=== PATIENT | female | born 1970 | race Two or more races ===

== ENCOUNTER 2021-04-16 09:44 | Outpatient (CLI) | payer OTHER | END 2021-04-16 09:45 | disposition home or self-care (01) | LOC: LAB 09:44 | DX: I10 Essential (primary) hypertension (principal); L40.8 Other psoriasis; Z00.00 Encounter for general adult medical examination without abnormal findings ==

== ENCOUNTER 2021-04-18 09:51 | Outpatient (CLI) | payer OTHER | END 2021-04-18 09:59 | disposition home or self-care (01) | LOC: SONOGRAMA 09:51 | DX: E03.8 Other specified hypothyroidism (principal) ==

== ENCOUNTER 2021-07-27 10:16 | Outpatient (CLI) | payer OTHER | END 2021-07-27 10:21 | disposition home or self-care (01) | LOC: LAB 10:16 | PROVIDERS: ATTEND Internal Medicine Endocrinology, Diabetes & Metabolism | DX: E03.8 Other specified hypothyroidism (principal); E11.65 Type 2 diabetes mellitus with hyperglycemia ==

== ENCOUNTER → 2022-02-04 10:37 | Outpatient (CLI) | payer OTHER | END | disposition home or self-care (01) | LOC: LAB 10:37 | PROVIDERS: ATTEND Obstetrics & Gynecology Obstetrics | DX: A64 Unspecified sexually transmitted disease (principal); E55.9 Vitamin D deficiency, unspecified; D64.3 Other sideroblastic anemias; N39.0 Urinary tract infection, site not specified; E03.9 Hypothyroidism, unspecified; I10 Essential (primary) hypertension; R10.2 Pelvic and perineal pain ==

== ENCOUNTER → 2022-02-12 | Outpatient (CLI) | payer OTHER | END | disposition home or self-care (01) | LOC: MAMO-SONO 12:23 | PROVIDERS: ATTEND Obstetrics & Gynecology Obstetrics | DX: N60.01 Solitary cyst of right breast (principal); N60.02 Solitary cyst of left breast; R10.2 Pelvic and perineal pain; Z12.31 Encounter for screening mammogram for malignant neoplasm of breast ==

== ENCOUNTER 2022-03-22 09:48 | Outpatient (CLI) | payer OTHER | END 2022-03-22 09:49 | disposition home or self-care (01) | LOC: LAB 09:48 | PROVIDERS: ATTEND Internal Medicine Endocrinology, Diabetes & Metabolism | DX: E11.65 Type 2 diabetes mellitus with hyperglycemia (principal); E78.00 Pure hypercholesterolemia, unspecified ==

== ENCOUNTER → 2022-08-08 08:04 | Outpatient (CLI) | payer OTHER | END | disposition home or self-care (01) | LOC: LAB 08:04 | PROVIDERS: ATTEND Internal Medicine Endocrinology, Diabetes & Metabolism | DX: E11.65 Type 2 diabetes mellitus with hyperglycemia (principal); E78.00 Pure hypercholesterolemia, unspecified ==

== ENCOUNTER → 2022-09-06 | Emergency (ER) | payer OTHER ==
[~2022-09-06] VITALS: Ht 149.9 cm; Wt 65.3 kg
[~2022-09-06] MED LIST: ADVIL LIQUI-GE200 MG PO; CRESTOR10 MG PO; METAXALONE800 MG PO; METFORMIN HCL850 M1 PO
== END | disposition home or self-care (01) ==
LOC: ER 10:23
DX: S13.4XXA Sprain of ligaments of cervical spine, initial encounter (principal); V43.52XA Car driver injured in collision with other type car in traffic accident, initial encounter; Y93.89 Activity, other specified; Y92.413 State road as the place of occurrence of the external cause; E11.9 Type 2 diabetes mellitus without complications; Z79.84 Long term (current) use of oral hypoglycemic drugs; I10 Essential (primary) hypertension

== ENCOUNTER 2022-12-27 09:41 | Outpatient (CLI) | payer OTHER | END 2022-12-27 09:50 | disposition home or self-care (01) | LOC: LAB 09:41 | PROVIDERS: ATTEND Internal Medicine Endocrinology, Diabetes & Metabolism | DX: E11.65 Type 2 diabetes mellitus with hyperglycemia (principal); E78.2 Mixed hyperlipidemia ==

== ENCOUNTER → 2023-05-02 09:42 | Outpatient (CLI) | payer OTHER ==
[2023-05-02 11:22] LABS: PH,URINE 6.5 (5.0-8.0); URINE APPEARANCE Clear; URINE BILIRRUBIN Negative (NEGATIVE); URINE BLOOD Negative; URINE COLOR Yellow; URINE GLUCOSE Negative (NEGATIVE); URINE LEUKOCYTE Trace; URINE NITRATE Negative; URINE PROTEIN Negative (NEGATIVE); URINE UROBILINOGEN 0.2 E.U./dl
[2023-05-02 11:27] LABS: URINE BACTERIA 2755.1 uL (0.0-1933); URINE EPITHELIAL CELLS 42.3 uL (0.0-38.8); URINE RBC 18.1 uL (0.0-20.8); URINE WBC 22.7 uL (0.0-23.2)
[2023-05-02 12:00] LABS: ALBUMIN 3.6 gm/dL (3.4-5.0); BILIRUBIN TOTAL 0.37 mg/dL (0.3-1.2); CALCIUM 9.6 mg/dL (8.5-10.1); CHOL HDL RATIO 2.5 (0-5.0); CREATININE SERUM 0.64 mg/dL (0.55-1.02); GFR 97.44; GLOBULINA 3.3 G/DL (2.4-3.5); POTASSIUM 4.82 mEq/L (3.5-5.1); TOTAL PROTEIN 6.9 gm/dL (6.4-8.2)
== END | disposition home or self-care (01) ==
LOC: LAB 09:42
PROVIDERS: ATTEND Internal Medicine Endocrinology, Diabetes & Metabolism
DX: E03.8 Other specified hypothyroidism (principal); E78.00 Pure hypercholesterolemia, unspecified; E11.65 Type 2 diabetes mellitus with hyperglycemia

== ENCOUNTER 2023-08-07 08:53 | Outpatient (CLI) | payer OTHER ==
[2023-08-07 09:42] LABS: HEMATOCRIT 41.9 % (36.0-45.00); MEAN CELL VOLUME 82.5 fL (80.00-100.00); MEAN CORPUSCULAR HEMOGLOBIN 27.6 pg (27.00-32.0); MEAN CORPUSCULAR HGB CONC 33.4 g/dl (32.0-36.0); PLATELET COUNT 287 K/uL (150-450); RED BLOOD COUNT 5.08 M/uL (4.00-6.00); RED CELL DISTRIBUTION WIDTH 14.6 % (11.5-14.5)
[2023-08-07 10:10] LABS: ALBUMIN 3.4 gm/dL (3.4-5.0); BILIRUBIN TOTAL 0.37 mg/dL (0.3-1.2); CALCIUM 9.5 mg/dL (8.5-10.1); CHOL HDL RATIO 2.7 (0-5.0); CREATININE SERUM 0.68 mg/dL (0.55-1.02); GFR 90.51; GLOBULINA 3.5 G/DL (2.4-3.5); POTASSIUM 4.47 mEq/L (3.5-5.1); TOTAL PROTEIN 6.9 gm/dL (6.4-8.2)
== END 2023-08-07 08:56 | disposition home or self-care (01) ==
LOC: LAB 08:53
PROVIDERS: ATTEND Internal Medicine Endocrinology, Diabetes & Metabolism
DX: E03.8 Other specified hypothyroidism (principal); E78.00 Pure hypercholesterolemia, unspecified

== ENCOUNTER 2023-08-29 10:05 | Outpatient (CLI) | payer OTHER ==
[2023-08-29 11:50] LABS: HEMOGLOBIN 13.9 g/dL (12.0-15.00); MEAN CELL VOLUME 83.5 fL (80.00-100.00); MEAN CORPUSCULAR HEMOGLOBIN 28.2 pg (27.00-32.0); MEAN CORPUSCULAR HGB CONC 33.8 g/dl (32.0-36.0); PLATELET COUNT 319 K/uL (150-450); RED BLOOD COUNT 4.92 M/uL (4.00-6.00)
[2023-08-29 12:06] LABS: URINE APPEARANCE Clear; URINE BILIRRUBIN Negative (NEGATIVE); URINE BLOOD Negative; URINE COLOR Yellow; URINE GLUCOSE Negative (NEGATIVE); URINE LEUKOCYTE Negative; URINE NITRATE Negative; URINE PROTEIN Negative (NEGATIVE); URINE UROBILINOGEN 0.2 E.U./dl
[2023-08-29 12:11] LABS: URINE BACTERIA 435.8 uL (0.0-1933); URINE RBC 18.2 uL (0.0-20.8); URINE WBC 1.8 uL (0.0-23.2)
[2023-08-29 12:36] LABS: INR < 0.93; PARTIAL THROMBOPLASTIN TIME 31.5 SECONDS (22.0-34.0); PROTHROMBIN TIME 9.8 SECONDS (9.0-11.5)
[2023-08-29 12:37] LABS: ALBUMIN 3.7 gm/dL (3.4-5.0); BILIRUBIN TOTAL 0.35 mg/dL (0.3-1.2); CALCIUM 9.7 mg/dL (8.5-10.1); CREATININE SERUM 0.6 mg/dL (0.55-1.02); GFR 104.57; GLOBULINA 3.2 G/DL (2.4-3.5); POTASSIUM 4.78 mEq/L (3.5-5.1); TOTAL PROTEIN 6.9 gm/dL (6.4-8.2)
== END 2023-08-29 10:06 | disposition home or self-care (01) ==
LOC: RAD 10:05
DX: L91.0 Hypertrophic scar (principal)

== ENCOUNTER 2023-09-04 14:00 | Outpatient (CLI) | payer OTHER ==
[2023-09-04 14:47] LABS: HEMATOCRIT 41.3 % (36.0-45.00); MEAN CELL VOLUME 82.9 fL (80.00-100.00); MEAN CORPUSCULAR HEMOGLOBIN 28.1 pg (27.00-32.0); MEAN CORPUSCULAR HGB CONC 33.9 g/dl (32.0-36.0); PLATELET COUNT 283 K/uL (150-450); RED BLOOD COUNT 4.98 M/uL (4.00-6.00); RED CELL DISTRIBUTION WIDTH 15.2 % (11.5-14.5)
[2023-09-04 15:13] LABS: MYCOPLASMA PNEUMONIAE IGM NON REACTIVE (NO REACTIVE)
== END 2023-09-04 14:01 | disposition home or self-care (01) ==
LOC: LAB 14:00
DX: A49.3 Mycoplasma infection, unspecified site (principal); Z03.818 Encounter for observation for suspected exposure to other biological agents ruled out; Z20.828 Contact with and (suspected) exposure to other viral communicable diseases; D51.0 Vitamin B12 deficiency anemia due to intrinsic factor deficiency

== ENCOUNTER 2024-01-28 13:35 | Emergency (ER) | payer OTHER ==
[~2024-01-28] VITALS: Ht 149.9 cm; Wt 67.6 kg
[2024-01-28] MEDS ORDERED: DOXYCYCLINE HY100 M2 PO (16:38)
[2024-01-28] MEDS ORDERED: IBU600 MG PO (16:38)
[2024-01-28] MEDS ORDERED: CEFTRIAXONE SODIUM 1,000 MG VIAL ONE (16:42)
[2024-01-28] MEDS ORDERED: CEFTRIAXONE SODIUM 1,000 MG VIAL IM ONE (16:45)
== END 2024-01-28 16:54 | disposition home or self-care (01) ==
LOC: ER 13:35
DX: L02.91 Cutaneous abscess, unspecified (principal)

== ENCOUNTER 2024-04-02 10:30 | Outpatient (CLI) | payer OTHER ==
[~2024-04-02 10:30] MED LIST changes: +DOXYCYCLINE HY100 M2 PO; +IBU600 MG PO
[2024-04-02 11:47] LABS: PH,URINE 5.5 (5.0-8.0); URINE APPEARANCE Clear; URINE BILIRRUBIN Negative (NEGATIVE); URINE BLOOD Negative; URINE COLOR Yellow; URINE GLUCOSE Negative (NEGATIVE); URINE KETONE Negative (NEGATIVE); URINE LEUKOCYTE Negative; URINE NITRATE Negative; URINE PROTEIN Negative (NEGATIVE); URINE UROBILINOGEN 0.2 E.U./dl
[2024-04-02 11:50] LABS: URINE BACTERIA 1192.8 uL (0.0-1933); URINE EPITHELIAL CELLS 35.5 uL (0.0-38.8); URINE WBC 7.2 uL (0.0-23.2)
[2024-04-02 11:59] LABS: HEMATOCRIT 44.7 % (36.0-45.00); HEMOGLOBIN 14.9 g/dL (12.0-15.00); MEAN CELL VOLUME 83.7 fL (80.00-100.00); MEAN CORPUSCULAR HEMOGLOBIN 27.8 pg (27.00-32.0); MEAN CORPUSCULAR HGB CONC 33.3 g/dl (32.0-36.0); PLATELET COUNT 309 K/uL (150-450); RED BLOOD COUNT 5.34 M/uL (4.00-6.00); RED CELL DISTRIBUTION WIDTH 15.1 % (11.5-14.5)
[2024-04-02 12:21] LABS: ALBUMIN 3.9 gm/dL (3.4-5.0); BILIRUBIN TOTAL 0.45 mg/dL (0.3-1.2); CALCIUM 9.7 mg/dL (8.5-10.1); CHOL HDL RATIO 2.2 (0-5.0); CREATININE SERUM 0.67 mg/dL (0.55-1.02); GFR 92.07; GLOBULINA 3.6 G/DL (2.4-3.5); POTASSIUM 4.49 mEq/L (3.5-5.1); TOTAL PROTEIN 7.5 gm/dL (6.4-8.2)
== END 2024-04-02 23:00 | disposition home or self-care (01) ==
LOC: LAB 10:30
PROVIDERS: ATTEND Internal Medicine Endocrinology, Diabetes & Metabolism
DX: E11.65 Type 2 diabetes mellitus with hyperglycemia (principal); E78.5 Hyperlipidemia, unspecified

== ENCOUNTER 2024-06-18 09:47 | Outpatient (CLI) | payer OTHER ==
[2024-06-18 11:13] LABS: HEMATOCRIT 43.1 % (36.0-45.00); HEMOGLOBIN 14.8 g/dL (12.0-15.00); MEAN CELL VOLUME 84.5 fL (80.00-100.00); MEAN CORPUSCULAR HGB CONC 34.3 g/dl (32.0-36.0); PLATELET COUNT 305 K/uL (150-450); RED CELL DISTRIBUTION WIDTH 14.3 % (11.5-14.5)
== END 2024-06-18 09:54 | disposition home or self-care (01) ==
LOC: LAB 09:47
DX: K21.9 Gastro-esophageal reflux disease without esophagitis (principal); R09.82 Postnasal drip; J42 Unspecified chronic bronchitis

== ENCOUNTER 2024-07-07 12:48 | Outpatient (CLI) | payer OTHER | END 2024-07-07 12:54 | disposition home or self-care (01) | LOC: MAMO-SONO 12:48 | PROVIDERS: ATTEND Obstetrics & Gynecology Gynecology | DX: N64.59 Other signs and symptoms in breast (principal); N63.0 Unspecified lump in unspecified breast; R10.2 Pelvic and perineal pain ==

== ENCOUNTER → 2024-07-25 10:25 | Outpatient (CLI) | payer OTHER ==
[2024-07-25 11:08] LABS: URINE APPEARANCE Clear; URINE BILIRRUBIN Negative (NEGATIVE); URINE BLOOD Negative; URINE COLOR Yellow; URINE GLUCOSE Negative (NEGATIVE); URINE KETONE Negative (NEGATIVE); URINE LEUKOCYTE Negative; URINE NITRATE Negative; URINE PROTEIN Negative (NEGATIVE); URINE UROBILINOGEN 0.2 E.U./dl
[2024-07-25 11:12] LABS: URINE BACTERIA 1785.5 uL (0.0-1933); URINE EPITHELIAL CELLS 27.8 uL (0.0-38.8); URINE RBC 9.7 uL (0.0-20.8); URINE WBC 10.4 uL (0.0-23.2)
[2024-07-25 11:15] LABS: HEMATOCRIT 40.6 % (36.0-45.00); HEMOGLOBIN 14.2 g/dL (12.0-15.00); MEAN CORPUSCULAR HEMOGLOBIN 29.3 pg (27.00-32.0); MEAN CORPUSCULAR HGB CONC 34.9 g/dl (32.0-36.0); PLATELET COUNT 304 K/uL (150-450); RED BLOOD COUNT 4.83 M/uL (4.00-6.00); RED CELL DISTRIBUTION WIDTH 13.8 % (11.5-14.5)
[2024-07-25 11:30] LABS: URINE CAST 0.14 uL (0.0-1.40)
[2024-07-25 12:18] LABS: ALBUMIN 3.6 gm/dL (3.4-5.0); BILIRUBIN TOTAL 0.44 mg/dL (0.3-1.2); CALCIUM 9.2 mg/dL (8.5-10.1); CHOL HDL RATIO 2.4 (0-5.0); CREATININE SERUM 0.64 mg/dL (0.55-1.02); GFR 96.7; GLOBULINA 3.2 G/DL (2.4-3.5); POTASSIUM 4.3 mEq/L (3.5-5.1); TOTAL PROTEIN 6.8 gm/dL (6.4-8.2)
== END | disposition home or self-care (01) ==
LOC: LAB 10:25
PROVIDERS: ATTEND Internal Medicine Endocrinology, Diabetes & Metabolism
DX: E78.00 Pure hypercholesterolemia, unspecified (principal)

== ENCOUNTER 2024-07-27 09:02 | Outpatient (CLI) | payer OTHER | END 2024-07-27 09:03 | disposition home or self-care (01) | LOC: NUCLEAR 09:02 | PROVIDERS: ATTEND Obstetrics & Gynecology Gynecology | DX: M81.0 Age-related osteoporosis without current pathological fracture (principal) ==

== ENCOUNTER → 2024-08-13 09:31 | Outpatient (CLI) | payer OTHER ==
[2024-08-13 10:23] LABS: PH,URINE 5.5 (5.0-8.0); URINE APPEARANCE Clear; URINE BILIRRUBIN Negative (NEGATIVE); URINE BLOOD Negative; URINE COLOR Yellow; URINE GLUCOSE Negative (NEGATIVE); URINE KETONE Negative (NEGATIVE); URINE LEUKOCYTE Negative; URINE NITRATE Negative; URINE PROTEIN Negative (NEGATIVE); URINE UROBILINOGEN 0.2 E.U./dl
[2024-08-13 10:24] LABS: URINE BACTERIA 538.4 uL (0.0-1933); URINE EPITHELIAL CELLS 11.5 uL (0.0-38.8); URINE RBC 4.1 uL (0.0-20.8); URINE WBC 4.4 uL (0.0-23.2)
[2024-08-13 10:27] LABS: HEMATOCRIT 42.7 % (36.0-45.00); HEMOGLOBIN 14.4 g/dL (12.0-15.00); MEAN CELL VOLUME 85.7 fL (80.00-100.00); MEAN CORPUSCULAR HGB CONC 33.8 g/dl (32.0-36.0); PLATELET COUNT 315 K/uL (150-450); RED BLOOD COUNT 4.98 M/uL (4.00-6.00); RED CELL DISTRIBUTION WIDTH 13.3 % (11.5-14.5)
[2024-08-13 11:19] LABS: ALBUMIN 3.6 gm/dL (3.4-5.0); BILIRUBIN TOTAL 0.54 mg/dL (0.3-1.2); CALCIUM 9.8 mg/dL (8.5-10.1); CHOL HDL RATIO 2.6 (0-5.0); CREATININE SERUM 0.79 mg/dL (0.55-1.02); GFR 75.84; GLOBULINA 3.4 G/DL (2.4-3.5); POTASSIUM 4.81 mEq/L (3.5-5.1); T4 TOTAL 9.26 UG/DL (4.8-13.9); TSH 1.16 uIU/mL (0.358-3.74)
== END | disposition home or self-care (01) ==
LOC: LAB 09:31
DX: R10.2 Pelvic and perineal pain (principal); N30.01 Acute cystitis with hematuria; N30.00 Acute cystitis without hematuria; E05.90 Thyrotoxicosis, unspecified without thyrotoxic crisis or storm; E03.9 Hypothyroidism, unspecified; E78.2 Mixed hyperlipidemia; Z12.11 Encounter for screening for malignant neoplasm of colon

== ENCOUNTER → 2024-08-15 06:35 | Outpatient (CLI) | payer OTHER ==
[2024-08-15 07:31] LABS: ob NEGATIVE (NEGATIVE)
== END | disposition home or self-care (01) ==
LOC: LAB 06:35
PROVIDERS: ATTEND Obstetrics & Gynecology Gynecology
DX: R10.2 Pelvic and perineal pain (principal); N30.01 Acute cystitis with hematuria; N30.00 Acute cystitis without hematuria; E11.9 Type 2 diabetes mellitus without complications; E05.90 Thyrotoxicosis, unspecified without thyrotoxic crisis or storm; E03.9 Hypothyroidism, unspecified; E78.2 Mixed hyperlipidemia; Z12.11 Encounter for screening for malignant neoplasm of colon

== ENCOUNTER 2024-11-26 08:06 | Outpatient (CLI) | payer OTHER ==
[2024-11-26 08:59] LABS: PH,URINE 5.5 (5.0-8.0); URINE APPEARANCE Clear; URINE BILIRRUBIN Negative (NEGATIVE); URINE BLOOD Negative; URINE COLOR Yellow; URINE GLUCOSE Negative (NEGATIVE); URINE KETONE Negative (NEGATIVE); URINE LEUKOCYTE Negative; URINE NITRATE Negative; URINE PROTEIN Negative (NEGATIVE); URINE UROBILINOGEN 0.2 E.U./dl
[2024-11-26 09:00] LABS: URINE BACTERIA 5029.2 uL (0.0-1933); URINE EPITHELIAL CELLS 71.8 uL (0.0-38.8); URINE RBC 6.4 uL (0.0-20.8); URINE WBC 22.6 uL (0.0-23.2)
[2024-11-26 09:08] LABS: URINE CAST 0.44 uL (0.0-1.40)
[2024-11-26 09:33] LABS: ALBUMIN 3.6 gm/dL (3.4-5.0); BILIRUBIN TOTAL 0.27 mg/dL (0.3-1.2); CALCIUM 8.9 mg/dL (8.5-10.1); CHOL HDL RATIO 2.5 (0-5.0); CREATININE SERUM 0.67 mg/dL (0.55-1.02); GFR 91.72; GLOBULINA 3.4 G/DL (2.4-3.5); POTASSIUM 4.97 mEq/L (3.5-5.1)
[2024-11-26 09:35] LABS: BASO % 0.8 % (0.1-1.2); EOS # 0.28 (0.04-0.54); EOS % 4.4 % (0.7-7.0); HEMATOCRIT 41.6 % (34.1-44.9); HEMOGLOBIN 13.7 g/dL (11.2-15.7); LYMPH # 2.06 (1.18-3.74); LYMPH % 32.1 % (19.3-53.1); MEAN CORPUSCULAR HEMOGLOBIN 27.4 pg (25.6-32.2); MONO # 0.45 (0.24-0.82); NEUT # 3.55 (1.56-6.13); NEUT % 55.4 % (34.0-71.1); PLATELET COUNT 328 K/uL (163-369); RED CELL DISTRIBUTION WIDTH 13.1 % (11.6-14.4)
[2024-11-26 09:48] LABS: INR 0.98; PARTIAL THROMBOPLASTIN TIME 30.2 SECONDS (22.0-34.0); PROTHROMBIN TIME 10.7 SECONDS (9.0-11.5)
== END 2024-11-26 09:06 | disposition home or self-care (01) ==
LOC: RAD 08:06
DX: L91.0 Hypertrophic scar (principal); E11.65 Type 2 diabetes mellitus with hyperglycemia; E78.5 Hyperlipidemia, unspecified

== ENCOUNTER → 2024-11-29 08:27 | Outpatient (CLI) | payer OTHER | END | disposition home or self-care (01) | LOC: EKG 08:27 | DX: L91.0 Hypertrophic scar (principal) ==

== ENCOUNTER 2024-12-31 08:41 | Outpatient (CLI) | payer OTHER ==
[2024-12-31 09:39] LABS: COVID-19 AG NEGATIVE (NEGATIVE)
== END 2024-12-31 08:45 | disposition home or self-care (01) ==
LOC: LAB 08:41
PROVIDERS: ATTEND Orthopaedic Surgery
DX: Z20.822 Contact with and (suspected) exposure to COVID-19 (principal)

== ENCOUNTER → 2025-03-25 08:18 | Outpatient (CLI) | payer OTHER ==
[2025-03-25 09:34] LABS: URINE APPEARANCE Clear; URINE BILIRRUBIN Negative (NEGATIVE); URINE BLOOD Negative; URINE COLOR Yellow; URINE GLUCOSE Negative (NEGATIVE); URINE KETONE Trace (NEGATIVE); URINE LEUKOCYTE Negative; URINE NITRATE Negative; URINE PROTEIN Negative (NEGATIVE); URINE UROBILINOGEN 0.2 E.U./dl
[2025-03-25 09:37] LABS: URINE BACTERIA 3810.9 uL (0.0-1933); URINE EPITHELIAL CELLS 66.9 uL (0.0-38.8); URINE RBC 6.5 uL (0.0-20.8); URINE WBC 16.7 uL (0.0-23.2)
[2025-03-25 09:41] LABS: URINE CAST 0.43 uL (0.0-1.40)
[2025-03-25 10:17] LABS: ALT/SGPT 32.0 U/L (12-78); AST/SGOT 23.0 U/L (15-37); BILIRUBIN TOTAL 0.34 mg/dL (0.3-1.2); BUN CREA RATIO 25.0 (7.0-25.0); CHOL HDL RATIO 2.4 (0-5.0); CREATININE SERUM 0.61 mg/dL (0.55-1.02); GFR 102.21; GLOBULINA 3.0 G/DL (2.4-3.5); GLUCOSE FASTING 91.0 mg/dL (65-100); HDL 61.0 mg/dl (40-60); LDL 70.0 mg/dl (0-130); OSMOLALITY SERUM 289.0 MOSM/KG (275-295); VLDL 16.0 (0-39)
== END | disposition home or self-care (01) ==
LOC: LAB 08:18
PROVIDERS: ATTEND Internal Medicine Endocrinology, Diabetes & Metabolism
DX: E11.65 Type 2 diabetes mellitus with hyperglycemia (principal); E78.00 Pure hypercholesterolemia, unspecified